=== PATIENT | male | born 1965 | race Caucasian/White ===

== ENCOUNTER 2018-02-05 05:08 | Inpatient (IN) | payer OTHER ==
[2018-02-05] MEDS ORDERED: CARDIZEM IV ONE (05:36)
--- NOTE | 2018-02-05 05:53 | XRay Report ---
FINAL REPORT EXAM: XR CHEST 1V AP HISTORY: tachycardia TECHNIQUE: AP portable view(s) of the chest obtained. PRIORS: None. FINDINGS: Patient is rotated. No mediastinal shift. Cardiac silhouette is not enlarged. No pneumothorax, effusion, or focal pulmonary opacity identified. No acute skeletal findings. IMPRESSION: No acute pulmonary finding identified.
[2018-02-05 06:09] LABS: INR 0.85 (0.87-1.13)
[2018-02-05 06:10] LABS: Partial Thromboplastin Time 25.9 Sec. (24.2-36.6)
[2018-02-05 06:11] LABS: Basophils % (Auto) 0.3 % (0.0-1.8); Eosinophils % (Auto) 0.1 % (0.0-4.3); Hematocrit 43.7 % (35.5-45.6); Hemoglobin 14.6 gm/dl (11.8-15.2); Lymphocytes # (Auto) 1.1 K/mm3 (1.2-5.4); Lymphocytes % (Auto) 8.3 % (13.4-35.0); Mean Corpuscular HGB Conc 33 % (32-34); Mean Corpuscular Hemoglobin 31 pg (28-32); Mean Corpuscular Volume 91 fl (84-94); Monocytes % (Auto) 7.8 % (0.0-7.3); Platelet Count 220 K/mm3 (140-440); Red Blood Count 4.79 M/mm3 (3.65-5.03); Red Cell Distribution Width 14.1 % (13.2-15.2)
[2018-02-05 06:24] LABS: Alanine Aminotransferase 23 units/L (7-56); Albumin 4.4 g/dL (3.9-5); BUN/Creatinine Ratio 16; Blood Urea Nitrogen 11 mg/dL (9-20); Hemolysis Index 4; Lipase 32 units/L (13-60)
[2018-02-05 06:26] LABS: Creatine Kinase MB < 1.0 ng/mL (0.0-4.0)
[2018-02-05 06:30] LABS: Free T4 (Free Thyroxine) 1.31 ng/dL (0.76-1.46)
--- NOTE | 2018-02-05 06:55 | Ultrasound Report ---
FINAL REPORT EXAM: US ABDOMEN LIMITED HISTORY: right upper quadrant abdominal pain COMPARISONS: None FINDINGS: Grayscale and color Doppler ultrasound evaluation of the right upper abdomen Liver is normal in size and contour. Hepatic parenchymal echogenicity is within normal limits. No parenchymal lesion identified. No intrahepatic biliary ductal dilatation. The common duct measures approximately 8 millimeters in caliber. Question subcentimeter choledocholithiasis. Multiple stones in layering sludge within the gallbladder. Stones measure up to about 2.5 cm in greatest dimension. Pericholecystic edema is present. Gallbladder wall measures around 5 millimeters in thickness. The pancreas is not well seen secondary to overlying bowel gas. Imaged portions of the aorta and inferior vena cava are unremarkable. No abdominal ascites or free fluid in Hamilton's pouch. The right kidney measures up to 12.3 cm in length and is without hydronephrosis or echogenic shadowing foci to suggest nephrolithiasis. IMPRESSION: Findings are compatible with acute cholecystitis. Importantly, there is extrahepatic biliary ductal dilatation with choledocholithiasis measuring up to 9 millimeters. Gastroenterology consultation is recommended. Notification initiated via [employer] business support administrator immediately following this dictation on 02/05/2018.
[2018-02-05] MEDS ORDERED: NACL 0.9% 1000 ML 1,000 ML ONE (07:59)
[2018-02-05] MEDS ORDERED: MORPHINE ONE (07:59)
[2018-02-05] MEDS ORDERED: ZOFRAN ONE (07:59)
[2018-02-05] MEDS ORDERED: ZOSYN/NS 4.5GM/100ML 4.5 GM/100 ML VIAL IV ONE (08:03)
[2018-02-05] MEDS ORDERED: NACL 0.9% 1000 ML 2,000 ML IV ONE (08:10)
[2018-02-05] MEDS ORDERED: MAGNESIUM SULFATE 2GM/50ML 2 GM/50 ML BAG IV ONE (08:29)
[2018-02-05] MEDS ORDERED: MORPHINE IV ONE ×3 (08:34→08:37)
[2018-02-05] MEDS ORDERED: ZOFRAN IV ONE (08:34)
[2018-02-05 08:39] LABS: Amorphous Crystals,Urine Few; Bilirubin,Urine NEG (Negative); Blood,Urine NEG (Negative); Color,Urine Yellow (Yellow); Mucus,Urine 1+ /HPF; Urobilinogen,Urine < 2.0 mg/dL (<2.0)
[2018-02-05 08:45] LABS: Amphetamine Screen,Urine PRESUMPTIVE NEGATIVE; Benzodiazepines Screen,Urine PRESUMPTIVE NEGATIVE; Cannabinoid Screen,Urine PRESUMPTIVE NEGATIVE; Cocaine Screen,Urine PRESUMPTIVE NEGATIVE; Methadone Screen,Urine PRESUMPTIVE NEGATIVE; Opiate Screen,Urine PRESUMPTIVE NEGATIVE
[2018-02-05] MEDS ORDERED: MAGNESIUM SULFATE 2 GM in NACL 0.9% 50 ML IV ONE (09:00)
--- NOTE | 2018-02-05 10:59 | Emergency Department Report ---
ED General Adult HPI - General Chief complaint: Abdominal Pain Stated complaint: abdominal pain Time Seen by Provider: 02/05/18 07:55 Source: EMS Mode of arrival: Stretcher Limitations: No Limitations - History of Present Illness Initial comments: This is a 52-year-old man who was initially listed as chest pain by triage. I suspect this was because of his inability to speak [place]. I have obtained his history in [place]i. He currently did not have chest pain at all. He had epigastric to right upper quadrant pain which occasionally radiated posteriorly. He told me that the pain was precipitated by eating at [employer] yesterday. He denied previous episodes of biliary colic. He stated that he was nauseated once before and has mild residual nausea. He denied fever or chills. He denies significant dyspnea or cough. He stated that he had no prior history of gallstones nor was he aware of any family history. He has no history of coronary artery disease. Apparently he was screened by the prior emergency room physician who noted that he had a tachycardia and gave him 20 mg of diltiazem IV. I was not aware of this prior to my encounter. Apparently, it was well-tolerated but he remained tachycardic. Severity scale (0 -10): 5 Quality: aching Consistency: constant Worsens with: other (precipitated by eating) Associated Symptoms: nausea/vomiting. denies: confusion, chest pain, cough, diaphoresis, fever/chills, headaches, loss of appetite, malaise, rash, seizure, shortness of breath, syncope, weakness Treatments Prior to Arrival: none - Related Data Home Medications Medication Instructions Recorded Confirmed Last Taken No Known Home Medications [No 02/05/18 02/05/18 Unknown Reported Home Medications] Allergies Allergy/AdvReac Type Severity Reaction Status Date / Time No Known Allergies Allergy Unverified 02/05/18 05:36 ED Review of Systems ROS: Stated complaint: CHEST PAIN Other details as noted in HPI Constitutional: denies: chills, fever Eyes: denies: eye pain, eye discharge, vision change ENT: denies: ear pain, throat pain Respiratory: denies: cough, shortness of breath, wheezing Cardiovascular: denies: chest pain, palpitations Endocrine: no symptoms reported Gastrointestinal: abdominal pain, nausea. denies: diarrhea Genitourinary: denies: urgency, dysuria Musculoskeletal: denies: back pain, joint swelling, arthralgia Skin: denies: rash, lesions Neurological: denies: headache, weakness, paresthesias Psychiatric: denies: anxiety, depression Hematological/Lymphatic: denies: easy bleeding, easy bruising ED Past Medical Hx - Past Medical History Previous Medical History?: No - Social History Smoking Status: Never Smoker Substance Use Type: None - Medications Home Medications: Home Medications Medication Instructions Recorded Confirmed Last Taken Type No Known Home Medications [No 02/05/18 02/05/18 Unknown History Reported Home Medications] ED Physical Exam - General Limitations: No Limitations General appearance: alert, in no apparent distress, obese - Head Head exam: Present: atraumatic, normocephalic - Eye Eye exam: Present: normal appearance, PERRL, EOMI. Absent: scleral icterus - ENT ENT exam: Present: mucous membranes moist - Neck Neck exam: Present: normal inspection. Absent: tenderness, meningismus - Respiratory Respiratory exam: Present: normal lung sounds bilaterally. Absent: respiratory distress - Cardiovascular Cardiovascular Exam: Present: regular rate, normal rhythm. Absent: systolic murmur, diastolic murmur, rubs, gallop - GI/Abdominal GI/Abdominal exam: Present: soft, tenderness (right upper quadrant tenderness was somewhat positive Brown's), normal bowel sounds. Absent: distended, guarding, rebound (no generalized rebound), rigid - Rectal Rectal exam: Present: deferred - Extremities Exam Extremities exam: Present: normal inspection - Back Exam Back exam: Present: normal inspection. Absent: CVA tenderness (R), CVA tenderness (L), muscle spasm, paraspinal tenderness, vertebral tenderness - Neurological Exam Neurological exam: Present: alert, oriented X3, CN II-XII intact. Absent: motor sensory deficit - Psychiatric Psychiatric exam: Present: normal affect, normal mood - Skin Skin exam: Present: warm, dry, intact, normal color. Absent: rash ED Course Vital Signs 02/05/18 02/05/18 02/05/18 05:21 05:28 05:31 Temperature 98.2 F Pulse Rate 120 H 122 H 123 H Respiratory 14 23 Rate Blood Pressure 119/88 Blood Pressure [Left] O2 Sat by Pulse 91 94 94 Oximetry 02/05/18 02/05/18 02/05/18 05:45 05:47 06:15 Temperature Pulse Rate 87 124 H Respiratory 13 Rate Blood Pressure Blood Pressure [Left] O2 Sat by Pulse 95 96 Oximetry 02/05/18 02/05/18 02/05/18 06:21 06:30 06:41 Temperature Pulse Rate 97 H 97 H 102 H Respiratory 19 17 24 Rate Blood Pressure 117/80 118/90 118/90 Blood Pressure [Left] O2 Sat by Pulse 95 96 96 Oximetry 02/05/18 02/05/18 02/05/18 06:51 07:00 07:25 Temperature Pulse Rate 102 H 102 H Respiratory 16 16 20 Rate Blood Pressure 113/89 117/87 Blood Pressure [Left] O2 Sat by Pulse 93 89 Oximetry 02/05/18 02/05/18 02/05/18 07:50 08:30 08:54 Temperature Pulse Rate 110 H 106 H Respiratory 20 20 Rate Blood Pressure Blood Pressure 136/76 130/94 [Left] O2 Sat by Pulse 97 97 93 Oximetry 02/05/18 02/05/18 02/05/18 09:00 09:10 09:20 Temperature Pulse Rate Respiratory Rate Blood Pressure 115/65 127/96 Blood Pressure [Left] O2 Sat by Pulse 94 97 89 Oximetry 02/05/18 02/05/18 02/05/18 09:30 09:40 09:45 Temperature 98.1 F Pulse Rate 92 H Respiratory 20 Rate Blood Pressure 127/96 121/87 Blood Pressure 106/77 [Left] O2 Sat by Pulse 89 90 96 Oximetry 02/05/18 09:50 Temperature Pulse Rate Respiratory Rate Blood Pressure 106/77 Blood Pressure [Left] O2 Sat by Pulse 95 Oximetry - Reevaluation(s) Reevaluation #1: Patient was covered with Zosyn. They were given analgesia and an antiemetic. I discussed the case with the GI specialist Dr. Ventura. He is very calm to the hospital to see the patient. Presumably an ERCP will be necessitated. He stated that we did not need surgical consult at this time. The patient was admitted to the hospitalist service for further care and evaluation in stable condition. 02/05/18 11:45 ED Medical Decision Making - Lab Data Result diagrams: 02/05/18 05:45 02/05/18 05:45 - Radiology Data Radiology results: report reviewed interpreted by me: Per radiologist compatible with acute cholecystitis. Extrahepatic biliary duct dilatation 9 mm with choledocholithiasis. Multiple stones in the gallbladder. Critical care attestation.: If time is entered above; I have spent that time in minutes in the direct care of this critically ill patient, excluding procedure time. ED Disposition Clinical Impression: Cholecystitis, acute, Choledocholithiasis Disposition: OP ADMIT IP TO THIS HOSP Is pt being admited?: Yes Does the pt Need Aspirin: No Condition: Stable Time of Disposition: 11:49
--- NOTE | 2018-02-05 11:22 | Gastroenterology Consultation ---
<KARLA CADET - Last Filed: 02/05/18 11:31> History of Present Illness - Reason for Consult Consult date: 02/05/18 choledocholithiasis Requesting physician: MADELEINE GUERRERO - History of Present Illness Patient is a 52 y/o male with no significant medical history who presented to ED with c/o an acute onset of epigastric pain that began yesterday after eating at [employer] with associated nausea. He underwent an abd U/S upon admisson that revealed acute cholecystitis with biliary ductal dilation suggestive of choledocholithiasis to which GI has been consulted. This morning patient was resting in bed w/o acute distress. Reports continued epigastric pain that occasionally radiates to his back. Denies fever, wt loss, CP, SOB, vomiting, signs of bleeding, or LGI symptoms. Past History Past Medical History: No medical history Past Surgical History: No surgical history Social history: denies: smoking, alcohol abuse Family history: no significant family history Medications and Allergies Allergies Allergy/AdvReac Type Severity Reaction Status Date / Time No Known Allergies Allergy Unverified 02/05/18 05:36 Home Medications Medication Instructions Recorded Confirmed Last Taken Type No Known Home Medications [No 02/05/18 02/05/18 Unknown History Reported Home Medications] Review of Systems - Review of Systems All systems: negative Gastrointestinal: abdominal pain, nausea Exam - Constitutional Vital Signs: Temp Pulse Resp BP Pulse Ox 98.4 F 102 H 20 122/86 95 02/05/18 11:06 02/05/18 11:06 02/05/18 11:06 02/05/18 11:06 02/05/18 11:06 General appearance: no acute distress - EENT Eyes: PERRL, EOM intact ENT: hearing intact - Respiratory Respiratory: bilateral: CTA - Cardiovascular Rhythm: other (tachycardia) Heart Sounds: Present: S1 & S2 - Gastrointestinal General gastrointestinal: Present: soft, tender (epigastric area/RUQ), non- distended, normal bowel sounds - Neurologic Neurological: alert and oriented x3 - Labs CBC & Chem 7: 02/05/18 05:45 02/05/18 05:45 Lab Results: Laboratory Results - last 24 hr 02/05/18 02/05/18 02/05/18 05:45 05:45 05:45 WBC 12.9 H RBC 4.79 Hgb 14.6 Hct 43.7 MCV 91 MCH 31 MCHC 33 RDW 14.1 Plt Count 220 Lymph % (Auto) 8.3 L [place] % (Auto) 7.8 H Eos % (Auto) 0.1 Baso % (Auto) 0.3 Lymph # 1.1 L [place] # 1.0 H Eos # 0.0 Baso # 0.0 Seg Neutrophils % 83.5 H Seg Neutrophils # 10.8 H PT 12.0 L INR 0.85 L APTT 25.9 Sodium 140 Potassium 3.6 Chloride 98.9 Carbon Dioxide 24 Anion Gap 21 BUN 11 Creatinine 0.7 L Estimated GFR > 60 BUN/Creatinine Ratio 16 Glucose 136 H Lactic Acid Calcium 9.0 Magnesium 1.50 L Total Bilirubin 0.20 AST 17 ALT 23 Alkaline Phosphatase 74 Total Creatine Kinase 61 CK-MB (CK-2) < 1.0 CK-MB (CK-2) Rel Index 1.6 Troponin T < 0.010 NT-Pro-B Natriuret Pep 24.73 Total Protein 7.0 Albumin 4.4 Albumin/Globulin Ratio 1.7 Lipase 32 TSH Free T4 Urine Color Urine Turbidity Urine pH Ur Specific [place] Urine Protein Urine Glucose (UA) Urine Ketones Urine Blood Urine Nitrite Urine Bilirubin Urine Urobilinogen Ur Leukocyte Esterase Urine WBC (Auto) Urine RBC (Auto) U Epithel Cells (Auto) Amorphous Crystals Urine Mucus Urine Opiates Screen Urine Methadone Screen Ur Barbiturates Screen Ur Phencyclidine Scrn Ur Amphetamines Screen U Benzodiazepines Scrn Urine Cocaine Screen U Marijuana (THC) Screen Drugs of Abuse Note 02/05/18 02/05/18 02/05/18 05:45 08:10 08:17 WBC RBC Hgb Hct MCV MCH MCHC RDW Plt Count Lymph % (Auto) [place] % (Auto) Eos % (Auto) Baso % (Auto) Lymph # [place] # Eos # Baso # Seg Neutrophils % Seg Neutrophils # PT INR APTT Sodium Potassium Chloride Carbon Dioxide Anion Gap BUN Creatinine Estimated GFR BUN/Creatinine Ratio Glucose Lactic Acid 3.20 H* Calcium Magnesium Total Bilirubin AST ALT Alkaline Phosphatase Total Creatine Kinase CK-MB (CK-2) CK-MB (CK-2) Rel Index Troponin T NT-Pro-B Natriuret Pep Total Protein Albumin Albumin/Globulin Ratio Lipase TSH 1.410 Free T4 1.31 Urine Color Urine Turbidity Urine pH Ur Specific [place] Urine Protein Urine Glucose (UA) Urine Ketones Urine Blood Urine Nitrite Urine Bilirubin Urine Urobilinogen Ur Leukocyte Esterase Urine WBC (Auto) Urine RBC (Auto) U Epithel Cells (Auto) Amorphous Crystals Urine Mucus Urine Opiates Screen Presumptive negative Urine Methadone Screen Presumptive negative Ur Barbiturates Screen Presumptive negative Ur Phencyclidine Scrn Presumptive negative Ur Amphetamines Screen Presumptive negative U Benzodiazepines Scrn Presumptive negative Urine Cocaine Screen Presumptive negative U Marijuana (THC) Screen Presumptive negative Drugs of Abuse Note Disclamer 02/05/18 02/05/18 08:17 09:14 WBC RBC Hgb Hct MCV MCH MCHC RDW Plt Count Lymph % (Auto) [place] % (Auto) Eos % (Auto) Baso % (Auto) Lymph # [place] # Eos # Baso # Seg Neutrophils % Seg Neutrophils # PT INR APTT Sodium Potassium Chloride Carbon Dioxide Anion Gap BUN Creatinine Estimated GFR BUN/Creatinine Ratio Glucose Lactic Acid 2.70 H* Calcium Magnesium Total Bilirubin AST ALT Alkaline Phosphatase Total Creatine Kinase CK-MB (CK-2) CK-MB (CK-2) Rel Index Troponin T NT-Pro-B Natriuret Pep Total Protein Albumin Albumin/Globulin Ratio Lipase TSH Free T4 Urine Color Yellow Urine Turbidity Clear Urine pH 7.0 Ur Specific [place] 1.023 Urine Protein 100 mg/dl Urine Glucose (UA) Neg Urine Ketones 20 Urine Blood Neg Urine Nitrite Neg Urine Bilirubin Neg Urine Urobilinogen < 2.0 Ur Leukocyte Esterase Neg Urine WBC (Auto) 5.0 Urine RBC (Auto) 4.0 U Epithel Cells (Auto) < 1.0 Amorphous Crystals Few Urine Mucus 1+ Urine Opiates Screen Urine Methadone Screen Ur Barbiturates Screen Ur Phencyclidine Scrn Ur Amphetamines Screen U Benzodiazepines Scrn Urine Cocaine Screen U Marijuana (THC) Screen Drugs of Abuse Note Assessment and Plan 1.choledocholithiasis -afebrile -WBC 12.9 -LFTs and lipase WNL -abd U/S revealed acute cholecystitis and biliary ductal dilation suggestive of choledocholithiasis -will order MRCP for further evaluation- consider ERCP based on results -recommend surgery consult -continue to trend labs and supportive care (IVF, pain medications, antiemetics , etc.) -further recommendations to follow <REJI MORA - Last Filed: 02/05/18 16:11> Medications and Allergies Active Meds: Active Medications Dextrose/Sodium Chloride (D5/0.45ns) 1,000 mls @ 75 mls/hr IV DIRECT BELINDA Last Admin: 02/05/18 11:50 Dose: 75 mls/hr Piperacillin Sod/Tazobactam Sod (Zosyn/Ns 3.375gm/50ml) 3.375 gm in 50 mls @ 100 mls/hr IV Q6HR BELINDA; Protocol Morphine Sulfate (Morphine) 2 mg IV Q4H PRN PRN Reason: Pain, Moderate (4-6) Last Admin: 02/05/18 11:50 Dose: 2 mg Exam - Constitutional Vital Signs: Temp Pulse Resp BP Pulse Ox 98.4 F 102 H 20 122/86 95 02/05/18 11:06 02/05/18 11:06 02/05/18 11:06 02/05/18 11:06 02/05/18 11:06 - Labs CBC & Chem 7: 02/05/18 05:45 02/05/18 05:45 Lab Results: Laboratory Results - last 24 hr 02/05/18 02/05/18 02/05/18 05:45 05:45 05:45 WBC 12.9 H RBC 4.79 Hgb 14.6 Hct 43.7 MCV 91 MCH 31 MCHC 33 RDW 14.1 Plt Count 220 Lymph % (Auto) 8.3 L [place] % (Auto) 7.8 H Eos % (Auto) 0.1 Baso % (Auto) 0.3 Lymph # 1.1 L [place] # 1.0 H Eos # 0.0 Baso # 0.0 Seg Neutrophils % 83.5 H Seg Neutrophils # 10.8 H PT 12.0 L INR 0.85 L APTT 25.9 Sodium 140 Potassium 3.6 Chloride 98.9 Carbon Dioxide 24 Anion Gap 21 BUN 11 Creatinine 0.7 L Estimated GFR > 60 BUN/Creatinine Ratio 16 Glucose 136 H Lactic Acid Calcium 9.0 Magnesium 1.50 L Total Bilirubin 0.20 AST 17 ALT 23 Alkaline Phosphatase 74 Total Creatine Kinase 61 CK-MB (CK-2) < 1.0 CK-MB (CK-2) Rel Index 1.6 Troponin T < 0.010 NT-Pro-B Natriuret Pep 24.73 Total Protein 7.0 Albumin 4.4 Albumin/Globulin Ratio 1.7 Lipase 32 TSH Free T4 Urine Color Urine Turbidity Urine pH Ur Specific [place] Urine Protein Urine Glucose (UA) Urine Ketones Urine Blood Urine Nitrite Urine Bilirubin Urine Urobilinogen Ur Leukocyte Esterase Urine WBC (Auto) Urine RBC (Auto) U Epithel Cells (Auto) Amorphous Crystals Urine Mucus Urine Opiates Screen Urine Methadone Screen Ur Barbiturates Screen Ur Phencyclidine Scrn Ur Amphetamines Screen U Benzodiazepines Scrn Urine Cocaine Screen U Marijuana (THC) Screen Drugs of Abuse Note 02/05/18 02/05/18 02/05/18 05:45 08:10 08:17 WBC RBC Hgb Hct MCV MCH MCHC RDW Plt Count Lymph % (Auto) [place] % (Auto) Eos % (Auto) Baso % (Auto) Lymph # [place] # Eos # Baso # Seg Neutrophils % Seg Neutrophils # PT INR APTT Sodium Potassium Chloride Carbon Dioxide Anion Gap BUN Creatinine Estimated GFR BUN/Creatinine Ratio Glucose Lactic Acid 3.20 H* Calcium Magnesium Total Bilirubin AST ALT Alkaline Phosphatase Total Creatine Kinase CK-MB (CK-2) CK-MB (CK-2) Rel Index Troponin T NT-Pro-B Natriuret Pep Total Protein Albumin Albumin/Globulin Ratio Lipase TSH 1.410 Free T4 1.31 Urine Color Urine Turbidity Urine pH Ur Specific [place] Urine Protein Urine Glucose (UA) Urine Ketones Urine Blood Urine Nitrite Urine Bilirubin Urine Urobilinogen Ur Leukocyte Esterase Urine WBC (Auto) Urine RBC (Auto) U Epithel Cells (Auto) Amorphous Crystals Urine Mucus Urine Opiates Screen Presumptive negative Urine Methadone Screen Presumptive negative Ur Barbiturates Screen Presumptive negative Ur Phencyclidine Scrn Presumptive negative Ur Amphetamines Screen Presumptive negative U Benzodiazepines Scrn Presumptive negative Urine Cocaine Screen Presumptive negative U Marijuana (THC) Screen Presumptive negative Drugs of Abuse Note Disclamer 02/05/18 02/05/18 08:17 09:14 WBC RBC Hgb Hct MCV MCH MCHC RDW Plt Count Lymph % (Auto) [place] % (Auto) Eos % (Auto) Baso % (Auto) Lymph # [place] # Eos # Baso # Seg Neutrophils % Seg Neutrophils # PT INR APTT Sodium Potassium Chloride Carbon Dioxide Anion Gap BUN Creatinine Estimated GFR BUN/Creatinine Ratio Glucose Lactic Acid 2.70 H* Calcium Magnesium Total Bilirubin AST ALT Alkaline Phosphatase Total Creatine Kinase CK-MB (CK-2) CK-MB (CK-2) Rel Index Troponin T NT-Pro-B Natriuret Pep Total Protein Albumin Albumin/Globulin Ratio Lipase TSH Free T4 Urine Color Yellow Urine Turbidity Clear Urine pH 7.0 Ur Specific [place] 1.023 Urine Protein 100 mg/dl Urine Glucose (UA) Neg Urine Ketones 20 Urine Blood Neg Urine Nitrite Neg Urine Bilirubin Neg Urine Urobilinogen < 2.0 Ur Leukocyte Esterase Neg Urine WBC (Auto) 5.0 Urine RBC (Auto) 4.0 U Epithel Cells (Auto) < 1.0 Amorphous Crystals Few Urine Mucus 1+ Urine Opiates Screen Urine Methadone Screen Ur Barbiturates Screen Ur Phencyclidine Scrn Ur Amphetamines Screen U Benzodiazepines Scrn Urine Cocaine Screen U Marijuana (THC) Screen Drugs of Abuse Note Assessment and Plan Pt seen and examined. Agree with note by Karla Cadet. Pt with suspected CBD stone on US. Liver enzymes normal. start abx for cholecystitis. MRCP pending , if confirms stone will need ercp. further recommendations following imaging.
--- NOTE | 2018-02-05 11:45 | History and Physical Report ---
History of Present Illness Date of examination: 02/05/18 Date of admission: 02/05/18 09:50 Chief complaint: Abdominal pain History of present illness: 52 year old male with no significant past medical history presented to the emergency department complaining of abdominal pain that started around 6 PM last night after he ate at [employer]. Pain started in the epigastric and right upper quadrant area, pain is pressure like, 6 out of 10 in intensity with no radiation. Patient denied nausea, vomiting, diarrhea, fever, chills. In the emergency department CT abdomen and pelvis was done and showed cholecystitis with choledocholithiasis. Patient was admitted to the floor for further evaluation and management. REVIEW OF SYSTEMS: GENERAL: no weight change, no fatigue, no fever HEAD: no head ache EYES: no blurry vision, no acute visual loss EARS: no hearing loss, no discharge, no earache NOSE: no stuffiness, no sneezing, no discharge MOUTH, THROAT AND NECK: no bleeding gums, no sore throat, no swollen neck CARDIAC: no palpitations, no dyspnea on exertion, no orthopnea, no PND, no edema , no chest pain RESPIRATORY: no shortness of breath, no wheeze, no cough, no sputum, no hemoptysis, no asthma GI: As stated in the HPI. URINARY: no change in frequency, no urgency, no polyuria, no hematuria, no incontinence MUSCULOSKELETAL: no muscle weakness, no pain, no joint stiffness NEUROLOGIC: no loss of sensation/numbness, no tingling, no tremors, no weakness/ paralysis HEMATOLOGIC: no anemia, no easy bruising SKIN: no rashes ENDOCRINE: no heat/cold intolerance, no polyuria, no polydipsia, no thyroid problems, no diabetes PSYCHIATRIC: no anxiety, no depression, no suicidal ideations Past History Past Medical History: No medical history Past Surgical History: No surgical history Social history: full code. denies: smoking, alcohol abuse, IV drug use Family history: no significant family history Medications and Allergies Allergies Allergy/AdvReac Type Severity Reaction Status Date / Time No Known Allergies Allergy Unverified 02/05/18 05:36 Home Medications Medication Instructions Recorded Confirmed Last Taken Type No Known Home Medications [No 02/05/18 02/05/18 Unknown History Reported Home Medications] Active Meds: Active Medications Dextrose/Sodium Chloride (D5/0.45ns) 1,000 mls @ 75 mls/hr IV DIRECT BELINDA Morphine Sulfate (Morphine) 2 mg IV Q4H PRN PRN Reason: Pain, Moderate (4-6) Exam - Physical Exam Narrative exam: Not in cardiopulmonary distress. The patient appeared well nourished and normally developed. Vital signs as documented. Head exam is unremarkable. No scleral icterus . Neck is without jugular venous distension, thyromegaly, or carotid bruits. Lungs are clear to auscultation. Cardiac exam reveals regular rate and Rhythm. First and second heart sounds normal. No murmurs, rubs or gallops. Abdominal exam reveals epigastric and right upper quadrant tenderness. Extremities are nonedematous and both femoral and pedal pulses are normal. 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 No focal weakness. - Constitutional Vitals: Temp Pulse Resp BP Pulse Ox 98.4 F 102 H 20 122/86 95 02/05/18 11:06 02/05/18 11:06 02/05/18 11:06 02/05/18 11:06 02/05/18 11:06 Results - Labs CBC & Chem 7: 02/05/18 05:45 02/05/18 05:45 Labs: Laboratory Last Values WBC 12.9 K/mm3 (4.5-11.0) H 02/05/18 05:45 RBC 4.79 M/mm3 (3.65-5.03) 02/05/18 05:45 Hgb 14.6 gm/dl (11.8-15.2) 02/05/18 05:45 Hct 43.7 % (35.5-45.6) 02/05/18 05:45 MCV 91 fl (84-94) 02/05/18 05:45 MCH 31 pg (28-32) 02/05/18 05:45 MCHC 33 % (32-34) 02/05/18 05:45 RDW 14.1 % (13.2-15.2) 02/05/18 05:45 Plt Count 220 K/mm3 (140-440) 02/05/18 05:45 Lymph % (Auto) 8.3 % (13.4-35.0) L 02/05/18 05:45 [place] % (Auto) 7.8 % (0.0-7.3) H 02/05/18 05:45 Eos % (Auto) 0.1 % (0.0-4.3) 02/05/18 05:45 Baso % (Auto) 0.3 % (0.0-1.8) 02/05/18 05:45 Lymph # 1.1 K/mm3 (1.2-5.4) L 02/05/18 05:45 [place] # 1.0 K/mm3 (0.0-0.8) H 02/05/18 05:45 Eos # 0.0 K/mm3 (0.0-0.4) 02/05/18 05:45 Baso # 0.0 K/mm3 (0.0-0.1) 02/05/18 05:45 Seg Neutrophils % 83.5 % (40.0-70.0) H 02/05/18 05:45 Seg Neutrophils # 10.8 K/mm3 (1.8-7.7) H 02/05/18 05:45 PT 12.0 Sec. (12.2-14.9) L 02/05/18 05:45 INR 0.85 (0.87-1.13) L 02/05/18 05:45 APTT 25.9 Sec. (24.2-36.6) 02/05/18 05:45 Sodium 140 mmol/L (137-145) 02/05/18 05:45 Potassium 3.6 mmol/L (3.6-5.0) 02/05/18 05:45 Chloride 98.9 mmol/L (98-107) 02/05/18 05:45 Carbon Dioxide 24 mmol/L (22-30) 02/05/18 05:45 Anion Gap 21 mmol/L 02/05/18 05:45 BUN 11 mg/dL (9-20) 02/05/18 05:45 Creatinine 0.7 mg/dL (0.8-1.5) L 02/05/18 05:45 Estimated GFR > 60 ml/min 02/05/18 05:45 BUN/Creatinine Ratio 16 % 02/05/18 05:45 Glucose 136 mg/dL (75-100) H 02/05/18 05:45 Lactic Acid 2.70 mmol/L (0.7-2.0) H* 02/05/18 09:14 Calcium 9.0 mg/dL (8.4-10.2) 02/05/18 05:45 Magnesium 1.50 mg/dL (1.7-2.3) L 02/05/18 05:45 Total Bilirubin 0.20 mg/dL (0.1-1.2) 02/05/18 05:45 AST 17 units/L (5-40) 02/05/18 05:45 ALT 23 units/L (7-56) 02/05/18 05:45 Alkaline Phosphatase 74 units/L (35-129) 02/05/18 05:45 Total Creatine Kinase 61 units/L (55-170) 02/05/18 05:45 CK-MB (CK-2) < 1.0 ng/mL (0.0-4.0) 02/05/18 05:45 CK-MB (CK-2) Rel Index 1.6 (0-4) 02/05/18 05:45 Troponin T < 0.010 ng/mL (0.00-0.029) 02/05/18 05:45 NT-Pro-B Natriuret Pep 24.73 pg/mL (0-900) 02/05/18 05:45 Total Protein 7.0 g/dL (6.3-8.2) 02/05/18 05:45 Albumin 4.4 g/dL (3.9-5) 02/05/18 05:45 Albumin/Globulin Ratio 1.7 % 02/05/18 05:45 Lipase 32 units/L (13-60) 02/05/18 05:45 TSH 1.410 mlU/mL (0.270-4.200) 02/05/18 05:45 Free T4 1.31 ng/dL (0.76-1.46) 02/05/18 05:45 Urine Color Yellow (Yellow) 02/05/18 08:17 Urine Turbidity Clear (Clear) 02/05/18 08:17 Urine pH 7.0 (5.0-7.0) 02/05/18 08:17 Ur Specific [place] 1.023 (1.003-1.030) 02/05/18 08:17 Urine Protein 100 mg/dl mg/dL (Negative) 02/05/18 08:17 Urine Glucose (UA) Neg mg/dL (Negative) 02/05/18 08:17 Urine Ketones 20 mg/dL (Negative) 02/05/18 08:17 Urine Blood Neg (Negative) 02/05/18 08:17 Urine Nitrite Neg (Negative) 02/05/18 08:17 Urine Bilirubin Neg (Negative) 02/05/18 08:17 Urine Urobilinogen < 2.0 mg/dL (<2.0) 02/05/18 08:17 Ur Leukocyte Esterase Neg (Negative) 02/05/18 08:17 Urine WBC (Auto) 5.0 /HPF (0.0-6.0) 02/05/18 08:17 Urine RBC (Auto) 4.0 /HPF (0.0-6.0) 02/05/18 08:17 U Epithel Cells (Auto) < 1.0 /HPF (0-13.0) 02/05/18 08:17 Amorphous Crystals Few 02/05/18 08:17 Urine Mucus 1+ /HPF 02/05/18 08:17 Urine Opiates Screen Presumptive negative 02/05/18 08:17 Urine Methadone Screen Presumptive negative 02/05/18 08:17 Ur Barbiturates Screen Presumptive negative 02/05/18 08:17 Ur Phencyclidine Scrn Presumptive negative 02/05/18 08:17 Ur Amphetamines Screen Presumptive negative 02/05/18 08:17 U Benzodiazepines Scrn Presumptive negative 02/05/18 08:17 Urine Cocaine Screen Presumptive negative 02/05/18 08:17 U Marijuana (THC) Screen Presumptive negative 02/05/18 08:17 Drugs of Abuse Note Disclamer 02/05/18 08:17 - Imaging and Cardiology CT Scan - head: report reviewed Assessment and Plan Assessment and plan: 52-year-old male with no significant past medical history presented to the ED complaining of epigastric and right upper quadrant pain. In the emergency department CT abdomen and pelvis was done and showed cholecystitis with choledocholithiasis. Abdominal pain Cholecystitis Cholelithiasis leukocytosis Obesity - Patient is nothing by mouth, IV fluids, pain control, started on IV Zosyn - GI and General surgery consulted DVT prophylaxis - SCDs because of patient may need surgery Disposition - Admit to MedSur floor. Advance Directives: Yes VTE prophylaxis?: Mechanical Contraindication Mechanical VTE Prophylaxis: Treatment Not Indicated Plan of care discussed with patient/family: Yes
[2018-02-05] MEDS: D5/0.45NS 1,000 ML IV SCH (11:50)
[2018-02-05] MEDS: MORPHINE IV PRN ×3 (11:50→23:50)
--- NOTE | 2018-02-05 14:19 | Consultation ---
History of Present Illness Consult date: 02/05/18 Chief complaint: Abdominal pain - History of present illness History of present illness: 52-year-old male with no past medical history presents to the hospital with complaints of one day of right upper quadrant abdominal pain. The pain is sharp and radiates around to the side of his right abdomen. It is of moderate severity. He states that he ate [employer] last night and that the pain started soon after. He's had pain like this in the past, most recently 2 months ago, which resolved on its own. He denies any fevers, chills, chest pain, shortness of breath, nausea, vomiting, constipation, diarrhea. No alleviating factors. No recent travel or sick contacts. Past History Past Medical History: No medical history Past Surgical History: No surgical history Social history: full code. denies: smoking, alcohol abuse, IV drug use Family history: no significant family history Medications and Allergies Allergies Allergy/AdvReac Type Severity Reaction Status Date / Time No Known Allergies Allergy Unverified 02/05/18 05:36 Home Medications Medication Instructions Recorded Confirmed Last Taken Type No Known Home Medications [No 02/05/18 02/05/18 Unknown History Reported Home Medications] Active Meds: Active Medications Dextrose/Sodium Chloride (D5/0.45ns) 1,000 mls @ 75 mls/hr IV DIRECT BELINDA Last Admin: 02/05/18 11:50 Dose: 75 mls/hr Piperacillin Sod/Tazobactam Sod (Zosyn/Ns 3.375gm/50ml) 3.375 gm in 50 mls @ 100 mls/hr IV Q6HR BELINDA; Protocol Morphine Sulfate (Morphine) 2 mg IV Q4H PRN PRN Reason: Pain, Moderate (4-6) Last Admin: 02/05/18 11:50 Dose: 2 mg Review of Systems All systems: negative (10 point review of systems was performed and negative except for that listed in HPI) Exam Vital Signs Pulse Resp Pulse Ox 120 H 14 91 02/05/18 05:21 02/05/18 05:21 02/05/18 05:21 Narrative exam: General: Awake, alert, oriented 3. No apparent distress ENT: No scleral icterus or conjunctival pallor CV: S1, S2 present Respiratory: Even and unlabored Abdomen: Soft, nondistended. Right upper quadrant and epigastric tenderness to palpation. No rebound, rigidity, guarding Extremities: No clubbing, cyanosis, edema Results - Labs 02/05/18 05:45 02/05/18 05:45 Abnormal lab results 02/05/18 02/05/18 02/05/18 Range/Units 05:45 05:45 05:45 WBC 12.9 H (4.5-11.0) K/mm3 Lymph % (Auto) 8.3 L (13.4-35.0) % [place] % (Auto) 7.8 H (0.0-7.3) % Lymph # 1.1 L (1.2-5.4) K/mm3 [place] # 1.0 H (0.0-0.8) K/mm3 Seg Neutrophils % 83.5 H (40.0-70.0) % Seg Neutrophils # 10.8 H (1.8-7.7) K/mm3 PT 12.0 L (12.2-14.9) Sec. INR 0.85 L (0.87-1.13) Creatinine 0.7 L (0.8-1.5) mg/dL Glucose 136 H (75-100) mg/dL Lactic Acid (0.7-2.0) mmol/L Magnesium 1.50 L (1.7-2.3) mg/dL 02/05/18 02/05/18 Range/Units 08:10 09:14 WBC (4.5-11.0) K/mm3 Lymph % (Auto) (13.4-35.0) % [place] % (Auto) (0.0-7.3) % Lymph # (1.2-5.4) K/mm3 [place] # (0.0-0.8) K/mm3 Seg Neutrophils % (40.0-70.0) % Seg Neutrophils # (1.8-7.7) K/mm3 PT (12.2-14.9) Sec. INR (0.87-1.13) Creatinine (0.8-1.5) mg/dL Glucose (75-100) mg/dL Lactic Acid 3.20 H* 2.70 H* (0.7-2.0) mmol/L Magnesium (1.7-2.3) mg/dL Diabetes panel 02/05/18 Range/Units 05:45 Sodium 140 (137-145) mmol/L Potassium 3.6 (3.6-5.0) mmol/L Chloride 98.9 (98-107) mmol/L Carbon Dioxide 24 (22-30) mmol/L BUN 11 (9-20) mg/dL Creatinine 0.7 L (0.8-1.5) mg/dL Glucose 136 H (75-100) mg/dL Calcium 9.0 (8.4-10.2) mg/dL AST 17 (5-40) units/L ALT 23 (7-56) units/L Alkaline Phosphatase 74 (35-129) units/L Total Protein 7.0 (6.3-8.2) g/dL Albumin 4.4 (3.9-5) g/dL Thyroid panel 02/05/18 Range/Units 05:45 TSH 1.410 (0.270-4.200) mlU/mL Calcium panel 02/05/18 Range/Units 05:45 Calcium 9.0 (8.4-10.2) mg/dL Albumin 4.4 (3.9-5) g/dL Pituitary panel 02/05/18 02/05/18 Range/Units 05:45 05:45 Sodium 140 (137-145) mmol/L Potassium 3.6 (3.6-5.0) mmol/L Chloride 98.9 (98-107) mmol/L Carbon Dioxide 24 (22-30) mmol/L BUN 11 (9-20) mg/dL Creatinine 0.7 L (0.8-1.5) mg/dL Glucose 136 H (75-100) mg/dL Calcium 9.0 (8.4-10.2) mg/dL TSH 1.410 (0.270-4.200) mlU/mL Adrenal panel 02/05/18 Range/Units 05:45 Sodium 140 (137-145) mmol/L Potassium 3.6 (3.6-5.0) mmol/L Chloride 98.9 (98-107) mmol/L Carbon Dioxide 24 (22-30) mmol/L BUN 11 (9-20) mg/dL Creatinine 0.7 L (0.8-1.5) mg/dL Glucose 136 H (75-100) mg/dL Calcium 9.0 (8.4-10.2) mg/dL Total Bilirubin 0.20 (0.1-1.2) mg/dL AST 17 (5-40) units/L ALT 23 (7-56) units/L Alkaline Phosphatase 74 (35-129) units/L Total Protein 7.0 (6.3-8.2) g/dL Albumin 4.4 (3.9-5) g/dL - Imaging US - abdomen: report reviewed, image reviewed Assessment and Plan 52 yo M with acute cholecystitis, dilated CBD Plan: 1. NPO 2. IVF 3. prn pain and nausea control 4. GI consult reviewed - agree with MRCP 5. DVT ppx 6. OOB/ambulate 7. Discussed cholecystectomy with patient. Scheduling will depend on results of MRCP. 8. IV abx 9. repeat labs in am Thank you for this consultation, please call with questions or concerns.
[2018-02-05] MEDS ORDERED: ATIVAN IV ONE (16:23)
[2018-02-05] MEDS: ZOSYN/NS 3.375GM/50ML 3.375 GM/50 ML BAG IV SCH ×2 (18:30→23:46)
[2018-02-05] MEDS ORDERED: TYLENOL PO PRN (23:40)
--- NOTE | 2018-02-06 01:15 | Magnetic Resonance Report ---
FINAL REPORT EXAM: MR ABDOMEN MRCP HISTORY: Acute cholecystitis, MR quest evaluate for choledocholithiasis. TECHNIQUE: MRI evaluation was performed of the abdomen/biliary system to include axial dual echo, axial 2D [place]; coronal spoiled gradient T1, T2 [place] and radial, 3D MR images of the gallbladder and biliary system. No contrast was utilized. PRIORS: Ultrasound dated 02/04/2018. FINDINGS: Lower thorax: No significant pleural effusion. Trace pericardial fluid. No hiatal hernia. Abdomen: Liver: Homogeneous signal intensity of the patent parenchyma, no suspicious lesion. Gallbladder: There are multiple gallstones present within the gallbladder lumen measuring up to 18 mm in diameter. Additional 13 mm gallstone is present within the gallbladder neck (axial 2D [place] image 27). There thickening of the gallbladder wall, distension of the gallbladder with bile and mild adjacent edema within the gallbladder fossa particularly anteriorly. The pancreatic parenchyma appears normal. There is no significant enlargement of the intrahepatic biliary system. The common duct overall decompressed measuring approximately 7 mm in diameter. Artifact is noted on the reformatted images throughout the common duct however there is no focal caliber change or definitive filling defect. The pancreatic duct is decompressed. MR appearance of the adrenal glands and bilateral kidneys unremarkable. The spleen has a normal appearance. IMPRESSION: MRI findings compatible with acute cholecystitis noting cholecystitis, gallbladder wall thickening, mild pericholecystic edema and distention of the gallbladder. There is no definitive focal filling defect or caliber change within the common duct to suggest choledocholithiasis. Evaluation is mildly limited secondary to artifact.
[2018-02-06] MEDS: D5/0.45NS 1,000 ML IV SCH ×2 (04:30→22:53)
[2018-02-06] MEDS: ZOSYN/NS 3.375GM/50ML 3.375 GM/50 ML BAG IV SCH ×2 (06:15→11:23)
[2018-02-06 07:43] LABS: Basophils % (Auto) 0.1 % (0.0-1.8); Hematocrit 42.7 % (35.5-45.6); Hemoglobin 14.3 gm/dl (11.8-15.2); Lymphocytes # (Auto) 0.9 K/mm3 (1.2-5.4); Lymphocytes % (Auto) 5.7 % (13.4-35.0); Mean Corpuscular HGB Conc 33 % (32-34); Mean Corpuscular Hemoglobin 31 pg (28-32); Mean Corpuscular Volume 91 fl (84-94); Monocytes # (Auto) 2.1 K/mm3 (0.0-0.8); Monocytes % (Auto) 13.4 % (0.0-7.3); Platelet Count 196 K/mm3 (140-440); Red Blood Count 4.68 M/mm3 (3.65-5.03); Red Cell Distribution Width 14.4 % (13.2-15.2)
[2018-02-06 08:09] LABS: Alanine Aminotransferase 43 units/L (7-56); Albumin 3.9 g/dL (3.9-5); BUN/Creatinine Ratio 10; Blood Urea Nitrogen 8 mg/dL (9-20); Calcium 8.9 mg/dL (8.4-10.2); Hemolysis Index 6; Lipase 18 units/L (13-60)
[2018-02-06] MEDS: MORPHINE IV PRN (11:23)
--- NOTE | 2018-02-06 11:27 | Gastroenterology Progress Note ---
<KARLA CADET - Last Filed: 02/06/18 11:28> Assessment and Plan 1.choledocholithiasis -afebrile -WBC 15.9-trending up -LFTs and lipase WNL -abd U/S revealed acute cholecystitis and biliary ductal dilation suggestive of choledocholithiasis -MRCP showed no evidence of choledocholithiasis -no plans for ERCP at this time -continue supportive care -surgery following with cholecystectomy pending -further management per surgery -will sign off, please call if needed Subjective Date of service: 02/06/18 Principal diagnosis: choledocholithiasis Interval history: Patient sitting on the side of the bed this am w/o acute distress. Admits to continued abd pain. No N/V. Objective - Constitutional Vitals: Temp Pulse Resp BP Pulse Ox 98.8 F 120 H 20 100/51 91 02/06/18 02:25 02/05/18 21:29 02/05/18 21:29 02/05/18 21:29 02/05/18 21:29 General appearance: no acute distress - Respiratory Respiratory: bilateral: CTA - Cardiovascular Rhythm: other (tachycardia) Heart Sounds: Present: S1 & S2 - Gastrointestinal General gastrointestinal: Present: soft, tender (epigastric/RUQ), non-distended , normal bowel sounds - Neurologic Neurological: alert and oriented x3 - Labs CBC & Chem 7: 02/06/18 07:12 02/06/18 07:12 Labs: Laboratory Results - last 24 hr 02/06/18 02/06/18 02/06/18 07:12 07:12 09:49 WBC 15.9 H RBC 4.68 Hgb 14.3 Hct 42.7 MCV 91 MCH 31 MCHC 33 RDW 14.4 Plt Count 196 Lymph % (Auto) 5.7 L [place] % (Auto) 13.4 H Eos % (Auto) 0.0 Baso % (Auto) 0.1 Lymph # 0.9 L [place] # 2.1 H Eos # 0.0 Baso # 0.0 Seg Neutrophils % 80.8 H Seg Neutrophils # 12.9 H Sodium 138 Potassium 4.2 Chloride 97.8 L Carbon Dioxide 27 Anion Gap 17 BUN 8 L Creatinine 0.8 Estimated GFR > 60 BUN/Creatinine Ratio 10 Glucose 127 H Lactic Acid 1.60 Calcium 8.9 Total Bilirubin 1.10 AST 26 ALT 43 Alkaline Phosphatase 66 Total Protein 6.6 Albumin 3.9 Albumin/Globulin Ratio 1.4 Lipase 18 <MORAREJI Plummer - Last Filed: 02/06/18 16:46> Assessment and Plan Pt seen and examined. Agree with note above. MRCP without signs of CBD stone. liver enzymes normal. noted plans for CCY. Will sign off, please call as needed or with questions. Objective - Constitutional Vitals: Temp Pulse Resp BP Pulse Ox 98.9 F 108 H 16 120/87 95 02/06/18 16:32 02/06/18 16:32 02/06/18 16:32 02/06/18 16:32 02/06/18 16:32 - Labs CBC & Chem 7: 02/06/18 07:12 02/06/18 07:12 Labs: Laboratory Results - last 24 hr 02/06/18 02/06/18 02/06/18 07:12 07:12 09:49 WBC 15.9 H RBC 4.68 Hgb 14.3 Hct 42.7 MCV 91 MCH 31 MCHC 33 RDW 14.4 Plt Count 196 Lymph % (Auto) 5.7 L [place] % (Auto) 13.4 H Eos % (Auto) 0.0 Baso % (Auto) 0.1 Lymph # 0.9 L [place] # 2.1 H Eos # 0.0 Baso # 0.0 Seg Neutrophils % 80.8 H Seg Neutrophils # 12.9 H Sodium 138 Potassium 4.2 Chloride 97.8 L Carbon Dioxide 27 Anion Gap 17 BUN 8 L Creatinine 0.8 Estimated GFR > 60 BUN/Creatinine Ratio 10 Glucose 127 H Lactic Acid 1.60 Calcium 8.9 Total Bilirubin 1.10 AST 26 ALT 43 Alkaline Phosphatase 66 Total Protein 6.6 Albumin 3.9 Albumin/Globulin Ratio 1.4 Lipase 18
[2018-02-06] MEDS ORDERED: DILAUDID ONE (11:50)
[2018-02-06] MEDS ORDERED: DIPRIVAN 10 MG/ML IV ONE ×2 (11:50→14:55)
[2018-02-06] MEDS ORDERED: XYLOCAINE MPF 2% ONE (11:50)
[2018-02-06] MEDS ORDERED: ZEMURON IV ONE (11:50)
[2018-02-06] MEDS ORDERED: MARCAINE 0.5% 0 ML INFILTRATI ONE (12:46)
[2018-02-06] MEDS ORDERED: XYLOCAINE 1% 20 mL ONE (12:46)
[2018-02-06] MEDS ORDERED: MARCAINE 0.25% INFILTRATI ONE ×2 (12:51→14:29)
[2018-02-06] MEDS ORDERED: VERSED IV ONE (12:55)
[2018-02-06] MEDS ORDERED: PEPCID IV NR (13:00)
[2018-02-06] MEDS ORDERED: LACTATED RINGERS 1,000 ML IV SCH (13:00)
--- NOTE | 2018-02-06 13:04 | Anesthesia Consultation ---
Anesthesia Consult and Med Hx Date of service: 02/06/18 - Airway Anesthetic Teeth Evaluation: Good ROM Head & Neck: Adequate Mental/Hyoid Distance: Adequate Mallampati Class: Class II Intubation Access Assessment: Probably Good - Pre-Operative Health Status ASA Pre-Surgery Classification: ASA2 Proposed Anesthetic Plan: General - Pulmonary Hx Sleep Apnea: Yes - Cardiovascular System Hx Hypertension: Yes (States occasional high BP, no meds.) - Gastrointestinal Hx Gastroesophageal Reflux Disease: Yes (Ocassional)
--- NOTE | 2018-02-06 13:06 | Anesthesia Day of Surgery ---
Anesthesia Day of Surgery - Day of Surgery Patient Examined: Yes Patient H&P Reviewed: Yes Patient is NPO: Yes
[2018-02-06] MEDS ORDERED: NEO SYNEPHRINE ONE (13:55)
[2018-02-06] MEDS ORDERED: XYLOCAINE 1% 20 mL INFILTRATI ONE (14:29)
[2018-02-06] MEDS ORDERED: NACL 0.9% IR ONE ×2 (14:29)
[2018-02-06] MEDS ORDERED: ZOFRAN ONE (15:00)
[2018-02-06] MEDS ORDERED: DECADRON ONE (15:00)
[2018-02-06] MEDS ORDERED: ROBINUL ONE (15:04)
[2018-02-06] MEDS ORDERED: PERCOCET 5/325 PO PRN (16:41)
--- NOTE | 2018-02-06 16:44 | Progress Note ---
Assessment and Plan Assessment and plan: 52-year-old male with no significant past medical history presented to the ED complaining of epigastric and right upper quadrant pain. In the emergency department CT abdomen and pelvis was done and showed cholecystitis with choledocholithiasis. Abdominal pain Cholecystitis Cholelithiasis leukocytosis; trending up Obesity: Will auto travel counselor about weight loss before discharge - Patient is nothing by mouth, IV fluids, pain control, started on IV Zosyn - Patient is going to have cholecystectomy this morning - Abdominal ultrasound shows cholecystitis with choledocholithiasis, MRCP shows cholecystitis or choledocholithiasis - GI and General surgery relative the patient DVT prophylaxis - SCDs, will put on heparin after surgery Disposition -Continue inpatient care History Interval history: Patient was seen and evaluated this morning, patient is complaining headache, abdominal pain is getting better and he rated 3 out of 10. Hospitalist Physical - Physical exam Narrative exam: Not in cardiopulmonary distress. The patient appeared well nourished and normally developed. Vital signs as documented. Head exam is unremarkable. No scleral icterus . Neck is without jugular venous distension, thyromegaly, or carotid bruits. Lungs are clear to auscultation. Cardiac exam reveals regular rate and Rhythm. First and second heart sounds normal. No murmurs, rubs or gallops. Abdominal exam reveals minimal epigastric and right upper quadrant tenderness. Extremities are nonedematous and both femoral and pedal pulses are normal. 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 No focal weakness. - Constitutional Vitals: Temp Pulse Resp BP Pulse Ox 97.6 F 105 H 12 107/83 97 02/06/18 15:32 02/06/18 16:15 02/06/18 16:15 02/06/18 16:15 02/06/18 16:15 Results - Labs CBC & Chem 7: 02/06/18 07:12 02/06/18 07:12 Labs: Laboratory Last Values WBC 15.9 K/mm3 (4.5-11.0) H 02/06/18 07:12 RBC 4.68 M/mm3 (3.65-5.03) 02/06/18 07:12 Hgb 14.3 gm/dl (11.8-15.2) 02/06/18 07:12 Hct 42.7 % (35.5-45.6) 02/06/18 07:12 MCV 91 fl (84-94) 02/06/18 07:12 MCH 31 pg (28-32) 02/06/18 07:12 MCHC 33 % (32-34) 02/06/18 07:12 RDW 14.4 % (13.2-15.2) 02/06/18 07:12 Plt Count 196 K/mm3 (140-440) 02/06/18 07:12 Lymph % (Auto) 5.7 % (13.4-35.0) L 02/06/18 07:12 [place] % (Auto) 13.4 % (0.0-7.3) H 02/06/18 07:12 Eos % (Auto) 0.0 % (0.0-4.3) 02/06/18 07:12 Baso % (Auto) 0.1 % (0.0-1.8) 02/06/18 07:12 Lymph # 0.9 K/mm3 (1.2-5.4) L 02/06/18 07:12 [place] # 2.1 K/mm3 (0.0-0.8) H 02/06/18 07:12 Eos # 0.0 K/mm3 (0.0-0.4) 02/06/18 07:12 Baso # 0.0 K/mm3 (0.0-0.1) 02/06/18 07:12 Seg Neutrophils % 80.8 % (40.0-70.0) H 02/06/18 07:12 Seg Neutrophils # 12.9 K/mm3 (1.8-7.7) H 02/06/18 07:12 PT 12.0 Sec. (12.2-14.9) L 02/05/18 05:45 INR 0.85 (0.87-1.13) L 02/05/18 05:45 APTT 25.9 Sec. (24.2-36.6) 02/05/18 05:45 Sodium 138 mmol/L (137-145) 02/06/18 07:12 Potassium 4.2 mmol/L (3.6-5.0) 02/06/18 07:12 Chloride 97.8 mmol/L (98-107) L 02/06/18 07:12 Carbon Dioxide 27 mmol/L (22-30) 02/06/18 07:12 Anion Gap 17 mmol/L 02/06/18 07:12 BUN 8 mg/dL (9-20) L 02/06/18 07:12 Creatinine 0.8 mg/dL (0.8-1.5) 02/06/18 07:12 Estimated GFR > 60 ml/min 02/06/18 07:12 BUN/Creatinine Ratio 10 % 02/06/18 07:12 Glucose 127 mg/dL (75-100) H 02/06/18 07:12 Lactic Acid 1.60 mmol/L (0.7-2.0) 02/06/18 09:49 Calcium 8.9 mg/dL (8.4-10.2) 02/06/18 07:12 Magnesium 1.50 mg/dL (1.7-2.3) L 02/05/18 05:45 Total Bilirubin 1.10 mg/dL (0.1-1.2) 02/06/18 07:12 AST 26 units/L (5-40) 02/06/18 07:12 ALT 43 units/L (7-56) 02/06/18 07:12 Alkaline Phosphatase 66 units/L (35-129) 02/06/18 07:12 Total Creatine Kinase 61 units/L (55-170) 02/05/18 05:45 CK-MB (CK-2) < 1.0 ng/mL (0.0-4.0) 02/05/18 05:45 CK-MB (CK-2) Rel Index 1.6 (0-4) 02/05/18 05:45 Troponin T < 0.010 ng/mL (0.00-0.029) 02/05/18 05:45 NT-Pro-B Natriuret Pep 24.73 pg/mL (0-900) 02/05/18 05:45 Total Protein 6.6 g/dL (6.3-8.2) 02/06/18 07:12 Albumin 3.9 g/dL (3.9-5) 02/06/18 07:12 Albumin/Globulin Ratio 1.4 % 02/06/18 07:12 Lipase 18 units/L (13-60) 02/06/18 07:12 TSH 1.410 mlU/mL (0.270-4.200) 02/05/18 05:45 Free T4 1.31 ng/dL (0.76-1.46) 02/05/18 05:45 Urine Color Yellow (Yellow) 02/05/18 08:17 Urine Turbidity Clear (Clear) 02/05/18 08:17 Urine pH 7.0 (5.0-7.0) 02/05/18 08:17 Ur Specific [place] 1.023 (1.003-1.030) 02/05/18 08:17 Urine Protein 100 mg/dl mg/dL (Negative) 02/05/18 08:17 Urine Glucose (UA) Neg mg/dL (Negative) 02/05/18 08:17 Urine Ketones 20 mg/dL (Negative) 02/05/18 08:17 Urine Blood Neg (Negative) 02/05/18 08:17 Urine Nitrite Neg (Negative) 02/05/18 08:17 Urine Bilirubin Neg (Negative) 02/05/18 08:17 Urine Urobilinogen < 2.0 mg/dL (<2.0) 02/05/18 08:17 Ur Leukocyte Esterase Neg (Negative) 02/05/18 08:17 Urine WBC (Auto) 5.0 /HPF (0.0-6.0) 02/05/18 08:17 Urine RBC (Auto) 4.0 /HPF (0.0-6.0) 02/05/18 08:17 U Epithel Cells (Auto) < 1.0 /HPF (0-13.0) 02/05/18 08:17 Amorphous Crystals Few 02/05/18 08:17 Urine Mucus 1+ /HPF 02/05/18 08:17 Urine Opiates Screen Presumptive negative 02/05/18 08:17 Urine Methadone Screen Presumptive negative 02/05/18 08:17 Ur Barbiturates Screen Presumptive negative 02/05/18 08:17 Ur Phencyclidine Scrn Presumptive negative 02/05/18 08:17 Ur Amphetamines Screen Presumptive negative 02/05/18 08:17 U Benzodiazepines Scrn Presumptive negative 02/05/18 08:17 Urine Cocaine Screen Presumptive negative 02/05/18 08:17 U Marijuana (THC) Screen Presumptive negative 02/05/18 08:17 Drugs of Abuse Note Disclamer 02/05/18 08:17
--- NOTE | 2018-02-06 16:47 | Operative Report ---
Operative Report Operative Report: Date of operation: 02/06/18 Preoperative diagnosis: Acute cholecystitis postOperative diagnoses: Same as above Procedure performed: Laparoscopic cholecystectomy Surgeon: Tia Mueller DO Member Of Parliament: Rashel Garcia MD Anesthesia: Gen. endotracheal anesthesia Findings: Distended gallbladder with extremely thickened wall, adhesions to the omentum Specimen: Gallbladder Estimated blood loss: 35 mL Complications: None Disposition: Stable to PACU HPI an indication: 52-year-old male who presented to the hospital with complaints of severe right upper quadrant abdominal pain. He was found to have acute cholecystitis on imaging consisting of a CAT scan of abdomen and pelvis and a right upper quadrant ultrasound. Her was concern for choledocholithiasis because the patient's common bile duct was dilated. An MRCP was performed which did not show evidence of choledocholithiasis. The patient's bilirubin and LFTs were within normal limits. The patient was then consented for a laparoscopic possible open cholecystectomy. All risks were discussed and questions answered. Procedure in detail: The patient was identified in the preoperative area and taken back to the operating room, placed on the operating room table in supine position. After anesthesia was induced, the abdomen was prepped and draped in usual sterile fashion and timeout was performed. Local anesthetic was infiltrated into all of the skin incision sites. Using a 11 blade a supraumbilical incision was made and through this a Veress needle was used to insufflate the abdomen. The position of the veress needle was confirmed with the saline drop test and the abdomen was then insufflated to 15 mmHg. The veress needle was then removed and a 5 mm trocar placed using Optiview trocar. The abdomen was then inspected and there was no underlying injury to any of the abdominal contents. An additional 12 mm subxyphoid port, and 2, 5mm RUQ ports were then placed under direct visualization. The patient was then placed into reverse Trendelberg and tilted to the left. There were dense omental adhesions to the gallbladder which were carefully taken down in blunt fashion. The gallbladder was visualized and the wall was extremely thickened and the gallbladder was dilated. The gallbladder was compressed using a laparoscopic needle and 60 mL syringe. 60 mL of green bile was removed. The gallbladder was grasped and lifted cephalad. The neck of the gallbladder had dense adhesions to the omentum which were carefully taken down using blunt dissection. There was a significant amount of inflammation in this area and therefore it was decided to perform a dome down approach. Using a Harmonic Scalpel the gallbladder was dissected off the liver bed until the neck of the gallbladder was encountered. The cystic duct and artery were then carefully dissected and the critical view obtained, and the cystic duct and artery were the only two structures seen entering the gallbladder. Cystic duct and artery were extremely small. Two clips were then placed on the proximal aspect of the cystic duct and one clip distally, and 1 clips on the cystic artery proximally. The cystic duct was then transected in between the clips. Cystic artery was ligated using the Harmonic scalpel. The gallbladder was placed into a Endo Catch bag and removed from the abdomen via the 12mm port. The gallbladder fossa was then inspected and there was no identifiable active bleeding or bile leakage. Hemostasis was ensured. The clips on the cystic duct and artery were visualized and intact. The patient was then placed into neutral position and Morison's pouch was irrigated and the irrigant returned clear. Kavita powder was applied to the gallbladder fossa and liver bed. The 12 mm port fascia was closed with figure of 8, 0 Vicryl suture. Skin incisions were closed with 4-0 Monocryl subcuticular stitches and skin glue. All skin incisions were once again infiltrated with local anesthetic. At the end case all sponge, instrument, sharp counts were correct 2. The patient was awoken from anesthesia, extubated, taken to PACU in stable condition.
[2018-02-06] MEDS: HEPARIN SUB-Q SCH (22:56)
[2018-02-07] MEDS: HEPARIN SUB-Q SCH (06:10)
[2018-02-07] MEDS: MORPHINE IV PRN (06:11)
[2018-02-07 06:41] VITALS: BP 118/88
[2018-02-07 08:15] LABS: Basophils % (Auto) 0.1 % (0.0-1.8); Eosinophils % (Auto) 0.1 % (0.0-4.3); Hematocrit 39.6 % (35.5-45.6); Hemoglobin 13.4 gm/dl (11.8-15.2); Lymphocytes # (Auto) 1.1 K/mm3 (1.2-5.4); Lymphocytes % (Auto) 9.9 % (13.4-35.0); Mean Corpuscular HGB Conc 34 % (32-34); Mean Corpuscular Hemoglobin 31 pg (28-32); Mean Corpuscular Volume 91 fl (84-94); Monocytes # (Auto) 1.6 K/mm3 (0.0-0.8); Monocytes % (Auto) 13.7 % (0.0-7.3); Platelet Count 202 K/mm3 (140-440); Red Blood Count 4.34 M/mm3 (3.65-5.03); Red Cell Distribution Width 14.4 % (13.2-15.2)
[2018-02-07 08:47] LABS: Alanine Aminotransferase 51 units/L (7-56); Albumin 3.9 g/dL (3.9-5); BUN/Creatinine Ratio 13; Blood Urea Nitrogen 9 mg/dL (9-20); Calcium 9.2 mg/dL (8.4-10.2); Hemolysis Index 0
--- NOTE | 2018-02-07 10:37 | Discharge Summary ---
<RUDDY TREVIZO - Last Filed: 02/07/18 10:33> Providers - Providers Date of Admission: 02/05/18 09:50 Attending physician: RUDDY TREVIZO MD 02/05/18 09:23 Consult to Physician [CONS] Urgent Comment: dr. bruner spoke to dr. leonardo Consulting Provider: REJI LEONARDO Physician Instructions: Reason For Exam: choledocholithiasis 02/05/18 11:43 Consult to Physician [CONS] Routine Comment: Consulting Provider: OSCAR BATES Physician Instructions: Reason For Exam: choledocholithiasis, cholecystitis Primary care physician: SUPERVISOR TUBING Hospitalization Reason for admission: Cholecystitis Condition: Stable Pertinent studies: MRCP abdominal U/S Procedures: Cholecystectomy Disposition: TO HOME OR SELFCARE Time spent for discharge: 31 minutes - Discharge Diagnoses (1) Cholecystitis, acute Status: Acute Core Measure Documentation - Palliative Care Palliative Care/ Comfort Measures: Not Applicable - Core Measures Any of the following diagnoses?: none Exam - Physical Exam Narrative exam: Not in cardiopulmonary distress. The patient appeared well nourished and normally developed. Vital signs as documented. Head exam is unremarkable. No scleral icterus . Neck is without jugular venous distension, thyromegaly, or carotid bruits. Lungs are clear to auscultation. Cardiac exam reveals regular rate and Rhythm. First and second heart sounds normal. No murmurs, rubs or gallops. Abdominal exam reveals minimal epigastric and right upper quadrant tenderness. Extremities are nonedematous and both femoral and pedal pulses are normal. LABOR ECONOMIST: Alert and oriented 3. No focal weakness. - Constitutional Vitals: Temp Pulse Resp BP Pulse Ox 98.7 F 111 H 18 118/88 92 02/07/18 05:49 02/07/18 05:49 02/07/18 05:49 02/07/18 05:49 02/07/18 05:49 Plan Activity: no restrictions Weight Bearing Status: Full Weight Bearing Diet: low fat Additional Instructions: Follow up at [facility] in 4 weeks Follow up with: PRIMARY CAREMD [Primary Care Provider] - 7 Days OSCAR BATES DO [Staff Physician] - 14 Days Prescriptions: Amoxicillin/K Clav Tab [Augmentin 875 mg] 1 tab PO Q12HR #10 tab oxyCODONE /ACETAMINOPHEN [Percocet 5/325] 1 tab PO Q6HR PRN #12 tablet PRN Reason: Pain <OSCAR BATES - Last Filed: 02/07/18 11:28> Providers - Providers Date of Admission: 02/05/18 09:50 Attending physician: RUDDY TREVIZO MD 02/05/18 09:23 Consult to Physician [CONS] Urgent Comment: dr. bruner spoke to dr. leonardo Consulting Provider: REJI LEONARDO Physician Instructions: Reason For Exam: choledocholithiasis 02/05/18 11:43 Consult to Physician [CONS] Routine Comment: Consulting Provider: OSCAR BATES Physician Instructions: Reason For Exam: choledocholithiasis, cholecystitis Primary care physician: SUPERVISOR TUBING Exam - Constitutional Vitals: Temp Pulse Resp BP Pulse Ox 98.7 F 111 H 18 118/88 92 02/07/18 05:49 02/07/18 05:49 02/07/18 05:49 02/07/18 05:49 02/07/18 05:49 Plan Activity: other (do not drive if taking prescription pain meds. no heavy lifting for 2 weeks) Wound: open to air (may shiwer, pat incisions dry, do not scrub. no hottubs/ pools/baths)
--- NOTE | 2018-02-07 12:36 | Progress Note ---
Assessment and Plan 52 yo M s/p laparoscopic cholecystectomy, POD 1 Plan: 1. reg diet 2. dc IVF 3. PRN PO pain control 4. OOB/ambulate 5. IS/pulm toilet 6. verbal dc instructions given to patient and instructions written in dc paperwork 7. patient is from [place] and is having a friend drive him back today. I instructed him to take frequent breaks from sitting in the car and to get out of the car every 1.5-2 hrs to walk to prevent blood clots. He understands I have given patient my office information to call with any questions or concerns. Ok to dc from surgery standpoint. Subjective Date of service: 02/07/18 Narrative: Pt seen and examined. Feels well. No abdominal pain, n/v. No f/c. No overnight events. Tolerated reg diet. Objective Vital Signs - 12hr 02/07/18 05:49 Temperature 98.7 F Pulse Rate 111 H Respiratory 18 Rate Blood Pressure 118/88 O2 Sat by Pulse 92 Oximetry - General physical appearance Narrative Exam: Gen: AAOx3. NAD ENT: no scleral icterus or conjunctival pallor CV: S1, S2+ Resp: even and unlabored Abd: soft, NT, ND. incisions c/d/i Ext: no c/c/e - Labs 02/07/18 07:00 02/07/18 07:00 Diabetes panel 02/07/18 Range/Units 07:00 Sodium 143 (137-145) mmol/L Potassium 4.1 (3.6-5.0) mmol/L Chloride 99.8 (98-107) mmol/L Carbon Dioxide 29 (22-30) mmol/L BUN 9 (9-20) mg/dL Creatinine 0.7 L (0.8-1.5) mg/dL Glucose 111 H (75-100) mg/dL Calcium 9.2 (8.4-10.2) mg/dL AST 34 (5-40) units/L ALT 51 (7-56) units/L Alkaline Phosphatase 70 (35-129) units/L Total Protein 7.0 (6.3-8.2) g/dL Albumin 3.9 (3.9-5) g/dL Calcium panel 02/07/18 Range/Units 07:00 Calcium 9.2 (8.4-10.2) mg/dL Albumin 3.9 (3.9-5) g/dL Pituitary panel 02/07/18 Range/Units 07:00 Sodium 143 (137-145) mmol/L Potassium 4.1 (3.6-5.0) mmol/L Chloride 99.8 (98-107) mmol/L Carbon Dioxide 29 (22-30) mmol/L BUN 9 (9-20) mg/dL Creatinine 0.7 L (0.8-1.5) mg/dL Glucose 111 H (75-100) mg/dL Calcium 9.2 (8.4-10.2) mg/dL Adrenal panel 02/07/18 Range/Units 07:00 Sodium 143 (137-145) mmol/L Potassium 4.1 (3.6-5.0) mmol/L Chloride 99.8 (98-107) mmol/L Carbon Dioxide 29 (22-30) mmol/L BUN 9 (9-20) mg/dL Creatinine 0.7 L (0.8-1.5) mg/dL Glucose 111 H (75-100) mg/dL Calcium 9.2 (8.4-10.2) mg/dL Total Bilirubin 0.60 (0.1-1.2) mg/dL AST 34 (5-40) units/L ALT 51 (7-56) units/L Alkaline Phosphatase 70 (35-129) units/L Total Protein 7.0 (6.3-8.2) g/dL Albumin 3.9 (3.9-5) g/dL
== END 2018-02-07 12:50 | disposition home or self-care (01) | DRG 419 ==
LOC: ED 05:08 → 3A 09:50
PROVIDERS: ADMIT Internal Medicine; ATTEND Internal Medicine
PROC: 0FT44ZZ Resection of Gallbladder, Percutaneous Endoscopic Approach (ICD-10-PCS; principal; 2018-02-06)
PROC: 0DNU4ZZ Release Omentum, Percutaneous Endoscopic Approach (ICD-10-PCS; 2018-02-06)
DX: K80.42 Calculus of bile duct with acute cholecystitis without obstruction (principal); R00.0 Tachycardia, unspecified; E66.9 Obesity, unspecified; K21.9 Gastro-esophageal reflux disease without esophagitis; I10 Essential (primary) hypertension; K66.0 Peritoneal adhesions (postprocedural) (postinfection); Z68.38 Body mass index [BMI] 38.0-38.9, adult
CPT/HCPCS: 36415; 71045; 74181; 76705; 80053; 80307; 81001; 82140; 82550; 82553; 83690; 83735; 83880; 84439; 84443; 84484; 85025; 85610; 85730; 87040; 87086; 88304; 93005; 93010; A4217; J1100; J1170; J1644; J2060; J2250; J2270; J2370; J2405; J2543; J2704; J3475; J7030; J7120